=== PATIENT | male | born 1985 | race Caucasian/White ===

== ENCOUNTER 2016-08-06 21:03 | Emergency (ER) | payer OTHER ==
[2016-08-06 21:16] VITALS: BP 112/72
[2016-08-06] MEDS ORDERED: Naproxen TAB* 250 MG PO ONE (21:31)
--- NOTE | 2016-08-06 22:08 | RAD ---
INDICATION: Left wrist injury. TECHNIQUE: 3 views of the left wrist were obtained. FINDINGS: The bones are in normal alignment. No fracture is seen. Joint spaces appear maintained. IMPRESSION: NO EVIDENCE FOR FRACTURE, IF THE PATIENT'S SYMPTOMS PERSIST RECOMMEND FOLLOW-UP IMAGING.
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
== END 2016-08-06 22:29 | disposition home or self-care (01) ==
LOC: UCEAST 21:03
DX: S63.502A Unspecified sprain of left wrist, initial encounter (principal); V86.59XA Driver of other special all-terrain or other off-road motor vehicle injured in nontraffic accident, initial encounter; Y93.89 Activity, other specified; Y92.9 Unspecified place or not applicable; F41.9 Anxiety disorder, unspecified; F17.210 Nicotine dependence, cigarettes, uncomplicated
CPT/HCPCS: 99212; A9270-GY; G0463

== ENCOUNTER 2016-08-13 18:00 | Emergency (ER) | payer OTHER ==
[2016-08-13 19:10] VITALS: BP 127/82
--- NOTE | 2016-08-13 20:02 | UC ---
[facility] HPI - HPI Summary HPI Summary: 30 yo male with dental pain for awhile worse past few days no fever feels swollen - History of Current Complaint Chief Complaint: UCDentalProblem Stated Complaint: DENTAL PAIN Time Seen by Provider: 08/13/16 19:46 Hx Obtained From: Patient Onset/Duration: Gradual Onset, Lasting Weeks, Worse Since - 2 days Severity: Severe Pain Intensity: 8 Pain Scale Used: 0-10 Numeric Aggravating: Heat, Cold, Chewing Alleviating: Nothing Related History: Previous Dental Care on Same Tooth, Swelling - Allergies/Home Medications Allergies/Adverse Reactions: Allergies Allergy/AdvReac Type Severity Reaction Status Date / Time Iodine Allergy Rash Verified 08/13/16 19:10 Home Medications: Home Medications Naproxen Sodium [Naproxen Sodium 220 mg cap] 2 tab PO Q12H PRN 08/13/16 [ History Confirmed 08/13/16] PMH/Surg Hx/FS Hx/Imm Hx Previously Healthy: Yes Endocrine History Of: Denies: Diabetes, Thyroid Disease Cardiovascular History Of: Denies: Cardiac Disorders, Hypertension Respiratory History Of: Denies: COPD, Asthma GI/ History Of: Denies: Ulcer Psychological History Of: Reports: Anxiety, Post Traumatic Stress Disorder - Surgical History Surgical History: Yes Surgery Procedure, Year, and Place: RIGHT HIP SUGERY- 2 PLATES 6 PINS 16 SCREWS. RIGHT HAND SURGERY- 2 PINS. APPY - Family History Known Family History: Positive: Hypertension, Blood Disorder - mom - Social History Alcohol Use: Occasionally Substance Use Type: None Smoking Status (MU): Current Every Day Smoker Type: Cigarettes Amount Used/How Often: 1PPD Household Exposure Type: Cigarettes Review of Systems Constitutional: Negative Skin: Negative Eyes: Negative ENT: Dental Pain Respiratory: Negative Cardiovascular: Negative Gastrointestinal: Negative Genitourinary: Negative Motor: Negative Neurovascular: Negative Musculoskeletal: Negative Neurological: Negative Psychological: Negative All Other Systems Reviewed And Are Negative: Yes Physical Exam Triage Information Reviewed: Yes Appearance: Well-Appearing, No Pain Distress, Well-Nourished Vital Signs: Initial Vital Signs Temp 98.6 F 08/13/16 19:05 Pulse 68 08/13/16 19:05 Resp 14 08/13/16 19:05 BP 127/82 08/13/16 19:05 Pulse Ox 100 08/13/16 19:05 Vital Signs Reviewed: Yes Eyes: Positive: Conjunctiva Clear ENT: Positive: Hearing grossly normal. Negative: Nasal congestion, Nasal drainage, Trismus, Muffled/hoarse voice Dental: Positive: Gross Decay/Caries @ Neck: Positive: Supple, Nontender, No Lymphadenopathy Respiratory: Positive: Lungs clear, Normal breath sounds, No respiratory distress Cardiovascular: Positive: RRR, No Murmur Neurological: Positive: Alert Psychological Exam: Normal Skin Exam: Normal Dental Complaint Course/Dx - Differential Dx/Diagnosis Provider Diagnoses: acute dentalgia? abscess Discharge - Discharge Plan Condition: Stable Disposition: HOME Prescriptions: Penicillin VK TAB 500 MG(NF) [Penicillin VK 500 mg Tab(NF)] 500 mg PO QID #28 tab Patient Education Materials: Toothache (ED) Referrals: No Primary Care Phys,NOPCP [Primary Care Provider] - Additional Instructions: norco one every 4 hours for severe pain don't take and drive you need to see a dentist in a timely fashion to ER for worsening symptoms Images Dental: 1 - fx/carious
[2016-08-13] MEDS ORDERED: Penicillin VK TAB* 250 MG PO ONE (20:03)
[2016-08-13] MEDS ORDERED: HYDROcodone/ACETAMIN 5-325 MG* 1 TAB PO ONE (20:03)
== END 2016-08-13 20:25 | disposition home or self-care (01) ==
LOC: UCEAST 18:00
DX: K04.7 Periapical abscess without sinus (principal); F17.210 Nicotine dependence, cigarettes, uncomplicated
CPT/HCPCS: 99202; A9270-GY; G0463

== ENCOUNTER 2016-09-19 22:04 | Emergency (ER) | payer OTHER ==
[2016-09-19] MEDS ORDERED: Morphine INJ* 4 MG/ML 1 ML SYRINGE IM ONE (22:12)
[2016-09-19] MEDS ORDERED: Ondansetron ODT TAB* 4 MG PO ONE (22:12)
[2016-09-19] MEDS ORDERED: Morphine INJ* 4 MG/ML 1 ML SYRINGE IV ONE ×2 (22:20→23:38)
[2016-09-19] MEDS ORDERED: Ondansetron INJ* 2 MG/ML VIAL IV ONE (22:20)
[2016-09-19 22:53] LABS: Hematocrit 41 % (42-52); Hemoglobin 13.7 g/dl (14.0-18.0); Mean Corpuscular HGB Conc 33 g/dl (31-36); Mean Corpuscular Hemoglobin 28 pg (27-31); Mean Corpuscular Volume 85 fL (80-94); Mean Platelet Volume 7 um3 (7.4-10.4); Red Blood Count 4.86 10^6/ul (4.0-5.4); Red Cell Distribution Width 14 % (10.5-15); White Blood Count 8.9 10^3/ul (3.5-10.8)
[2016-09-19 23:07] LABS: BUN/Creatinine Ratio 13.6 (8-20); Calcium 9.2 mg/dL (8.6-10.3); EGFR African American 130.8 (>60); EGFR Non-African American 101.7 (>60); Potassium 3.7 mmol/L (3.5-5.0)
[2016-09-20] MEDS ORDERED: oxyCODONE/Acetamin 5/325 MG* TAB PO ONE (01:13)
[2016-09-20 01:34] VITALS: BP 107/70
--- NOTE | 2016-09-20 07:32 | RAD ---
INDICATION: Right femur injury. TECHNIQUE: 2 views of the right femur were obtained. FINDINGS: The patient is status post operative reduction and internal fixation. There is a metallic plate transfixed with multiple screws present along the posterior aspect of the acetabulum. The bones are in normal alignment. No fracture is seen. IMPRESSION: POSTSURGICAL CHANGES, NO EVIDENCE FOR ACUTE FRACTURE.
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
--- NOTE | 2016-09-20 07:50 | RAD ---
INDICATION: Trauma, right hip pain. COMPARISON: Comparison is made with a prior x-ray study of the pelvis from one day earlier. TECHNIQUE: Contiguous axial sections were obtained through the pelvis without intravenous or oral contrast. Images were reconstructed in the coronal and sagittal planes. FINDINGS: The patient is status post operative reduction internal fixation of the posterior aspect of the right acetabulum. There is mild deformity of the acetabulum in that region most consistent with an old healed fracture. There is a linear calcific density adjacent to the right lesser trochanter. No soft tissue swelling is noted in this region and this would be most consistent with a soft tissue calcification or old avulsion fracture fragment. No acute fracture is seen. 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 The sacroiliac joint spaces appear maintained. No significant enlarged pelvic lymph nodes are seen. The visualized portion of the small bowel and colon appear nondistended. No free intraperitoneal air or fluid is seen. IMPRESSION: POSTSURGICAL AND TRAUMATIC CHANGES, NO EVIDENCE FOR ACUTE FRACTURE.
--- NOTE | 2016-10-01 23:35 | ED ---
Tian Jama Rebecca, scribed for Rosendo Pulido MD on 09/19/16 at 2215 . Lower Extremity - HPI Summary HPI Summary: Pt is a 30 y/o M BIBA who presents to ED c/o R hip pain s/p fall. Pt reports he went to step off a ladder and did not see a hitch behind him. He caught his L foot on the hitch, causing him to fall and land on the lateral side of his R hip. Negative LOC. Was able to get up with the help of his fiancee. Denies any head or back trauma. Pain began immediately upon fall and has been constant since onset. Pain is currently severe, ranked 8/10 and discrete to the R hip with radiation midway down the right thigh. Sx aggravated by movement, alleviated by nothing. Denies any CHAUDHARY and neck pain. PSHx surgical intervention on the R hip with 2 plates, 6 pins and 16 screws, done at [facility]. - History of Current Complaint Chief Complaint: EDExtremityLower Stated Complaint: FALL HIP PAIN Time Seen by Provider: 09/19/16 22:08 Hx Obtained From: Patient Mechanism Of Injury: Fall From A Standing Position Onset of Pain: Prior to Arrival Onset/Duration: Still Present Severity Currently: Severe Pain Intensity: 8 Pain Scale Used: 0-10 Numeric Timing: Constant Location: Radiates To - R hip with radiation down the R thigh Associated Signs And Symptoms: Positive: Negative Aggravating Factor(s): Movement Alleviating Factor(s): Nothing - Allergies/Home Medications Allergies/Adverse Reactions: Allergies Allergy/AdvReac Type Severity Reaction Status Date / Time Iodine Allergy Rash Verified 08/13/16 19:10 Penicillins Allergy Rash Verified 09/19/16 22:08 Shellfish Allergy Allergy Rash Verified 09/19/16 22:08 PMH/Surg Hx/FS Hx/Imm Hx Endocrine/Hematology History: Denies: Hx Diabetes, Hx Thyroid Disease Cardiovascular History: Denies: Hx Hypertension Respiratory History: Denies: Hx Asthma, Hx Chronic Obstructive Pulmonary Disease (COPD) GI History: Denies: Hx Ulcer Psychiatric History: Reports: Hx Anxiety - Surgical History Surgery Procedure, Year, and Place: RIGHT HIP SUGERY- 2 PLATES 6 PINS 16 SCREWS. RIGHT HAND SURGERY- 2 PINS. APPY Infectious Disease History: Denies: Hx Clostridium Difficile, Hx Hepatitis, Hx Human Immunodeficiency Virus (HIV), Hx of Known/Suspected MRSA, Hx Shingles, Hx Tuberculosis, Hx Known/ Suspected VRE, Hx Known/Suspected VRSA, History Other Infectious Disease, Traveled Outside the [place] in Last 30 Days - Family History Known Family History: Positive: Hypertension, Blood Disorder - mom - Social History Alcohol Use: Occasionally Substance Use Type: Reports: None Smoking Status (MU): Current Every Day Smoker Type: Cigarettes Amount Used/How Often: 1PPD Review of Systems Negative: Fever, Chills Negative: Erythema Negative: Sore Throat Negative: Chest Pain Negative: Shortness Of Breath, Cough Negative: Abdominal Pain, Vomiting, Nausea Negative: dysuria, hematuria Positive: Arthralgia - R hip pain s/p fall; Denies neck pain. Negative: Edema Negative: Rash Neurological: Other - Negative dizziness Negative: Headache All Other Systems Reviewed And Are Negative: Yes Physical Exam - Summary Physical Exam Summary: Constitutional: Well-developed, Well-nourished, Alert. (-) Distressed Skin: Warm, Dry HENT: Normocephalic; Atraumatic Eyes: Conjunctiva normal Neck: Musculoskeletal ROM normal neck. (-) JVD, (-) Stridor, (-) Tracheal deviation Cardio: Rhythm regular, rate normal, Heart sounds normal; Intact distal pulses; The pedal pulses are 2+ and symmetric. Radial pulses are 2+ and symmetric. (-) Murmur Pulmonary/Chest wall: Effort normal. (-) Respiratory distress, (-) Wheezes, (-) Rales Abd: Soft, (-) Tenderness, (-) Distension, (-) Guarding, (-) Rebound Musculoskeletal: Swelling and deformity to the R lateral hip with pain to palpation. There is a surgical scar. Extremely limited ROM actively. Lymph: (-) Cervical adenopathy Neuro: Alert, Oriented x3 Psych: Mood and affect Normal Triage Information Reviewed: Yes Vital Signs On Initial Exam: Initial Vitals Temp Pulse Resp BP Pulse Ox 99.5 F 72 18 102/71 100 09/19/16 22:06 09/19/16 22:06 09/19/16 22:06 09/19/16 22:06 09/19/16 22:06 Vital Signs Reviewed: Yes Diagnostics - Vital Signs Vital Signs Temp Pulse Resp BP Pulse Ox 09/19/16 22:06 99.5 F 72 18 102/71 100 - Laboratory Result Diagrams: 09/19/16 22:30 09/19/16 22:30 Lab Statement: Any lab studies that have been ordered have been reviewed, and results considered in the medical decision making process. - Radiology Pelvis XR Xray Interpretation: Positive (See Comments) - Evulsion fracture of the lesser trochanter on the R side. Hardware has been replaced. Due to hardware being replaced and the propensity for additoinal fractures, will order CT. Radiology Interpretation Completed By: ED Physician Femur XR Xray Interpretation: No Acute Changes Radiology Interpretation Completed By: ED Physician Lower Extremity Course/Dx - Course Assessment/Plan: Pt is a 30 y/o M BIBA who presents to ED c/o severe R hip pain s/p fall. Pt reports he went to step off a ladder and did not see a hitch behind him. He caught his L foot on the hitch, causing him to fall and land on the lateral side of his R hip. Negative LOC. Was able to get up with the help of his fiancee. Denies any head or back trauma. Pain began immediately upon fall and has been constant since onset. Pain is discrete to the R hip with radiation midway down the right thigh. Sx aggravated by movement, alleviated by nothing. Denies any CHAUDHARY and neck pain. Pelvic XR shows an evulsion fracture of the lesser trochanter. Femur XR is negative. Pt will be signed out, pending dispo, awaiting CT Pelvis. - Diagnoses Provider Diagnoses: Fracture of lesser trochanter of femur, Fall Discharge - Discharge Plan Condition: Stable Disposition: OTHER Discharge Disposition Comment: Pt will be signed out to Dr. Jay, pending dispo, awaiting Pelvic CT Referrals: No Primary Care Phys,NOPCP [Primary Care Provider] - The documentation as recorded by the Tian olsen Rebecca accurately reflects the service I personally performed and the decisions made by me, Rosendo Pulido MD.
--- NOTE | 2016-10-04 06:28 | ED ---
carolyn Jama Timothy, scribed for Roman Jay MD on 09/19/16 at 2351 . Progress - Progress Note Progress Note: Daryn Garcia is a 30 yo male presenting to [facility] with 8/10 right hip pain S/ P a 3 foot fall off a ladder at 2100 tonight. His MHx includes right hip surgery with 2 plates, 6 pins, and 16 screws, right hand surgery, appendectomy, and anxiety. He was signed out by Dr. Pulido pending CT Pelvis. CT Pelvis: No acute fracture. Small soft tissue calcification near right lesser trochanter. Incidental bone island right femoral head. Fixation right pelvis. - EKG/XRAY/CT CT: see note for CT Pelvis result Course/Dx - Course Course Of Treatment: Daryn Garcia is a 30 yo male presenting to [facility] with 8 /10 right hip pain S/P a 3 foot fall off a ladder at 2100 tonight, with a Hx of right hip replacement with 2 plates, 6 pins, and 16 screws. He was signed out by Dr. Pulido pending CT Pelvis. Pt medication list reviewed this visit. His CT Pelvis suggests no acute fracture. Small soft tissue calcification near right lesser trochanter. Incidental bone island right femoral head. Fixation right pelvis. After clinical examination and review of his lab and imaging studies, he will be dicharged home with right hip contusion with appropriate instructions. - Diagnoses Provider Diagnoses: Contusion of right hip The documentation as recorded by the franklynibecarolyn Timothy accurately reflects the service I personally performed and the decisions made by , Roman Jay MD.
== END 2016-09-20 01:35 ==
LOC: ED 22:04
DX: S70.01XA Contusion of right hip, initial encounter (principal); W19.XXXA Unspecified fall, initial encounter; Y93.9 Activity, unspecified; Y92.9 Unspecified place or not applicable; Z88.0 Allergy status to penicillin; F41.9 Anxiety disorder, unspecified; F17.210 Nicotine dependence, cigarettes, uncomplicated
CPT/HCPCS: 36415; 72170; 72192; 80048; 85027; 96374; 96375; 99282; A9270-GY; J2270; J2405

== ENCOUNTER 2017-02-05 11:13 | Emergency (ER) | payer OTHER ==
--- NOTE | 2017-02-05 11:45 | RAD ---
INDICATION: Right fifth finger injury. TECHNIQUE: 3 views of the right fifth finger were obtained. FINDINGS: There is soft tissue swelling present around the distal phalanx. There is a slightly comminuted nondisplaced fracture of the tuft of the distal phalanx. Joint spaces appear maintained. IMPRESSION: SLIGHTLY COMMINUTED NONDISPLACED FRACTURE OF THE TUFT OF THE DISTAL PHALANX.
--- NOTE | 2017-02-05 12:04 | ED ---
Upper Extremity Pain - HPI Summary HPI Summary: 31 male presents to ED with complaints of injury and pain to right pinky finger that occurred just [employer]. Patient states he was working with wood/logs and coworker accidentally dropped log onto patient's distal pinky. Admits to swelling and bruising, nail still intact. No other complaints or injuries. Has not taken any medications and pain is minimal currently. No PMHx. Dominant hand right. Denies weakness, numbness/tingling. - History of Current Complaint Chief Complaint: EDExtremityUpper Stated Complaint: FINGER INJURY Time Seen by Provider: 02/05/17 11:19 Hx Obtained From: Patient Mechanism Of Injury: Other - caught in between to heavy logs Onset/Duration: Started Hours Ago, Traumatic, Still Present Timing: Constant Severity Initially: Moderate Severity Currently: Mild Pain Location: Finger - right fifth digit Character: Aching, Throbbing Aggravating Factor(s): Movement Alleviating Factor(s): Rest Associated Signs & Symptoms: Positive: Swelling, Bruising. Negative: Weakness, Numbness/Tingling Related History: Dominant Hand Right - Allergies/Home Medications Allergies/Adverse Reactions: Allergies Allergy/AdvReac Type Severity Reaction Status Date / Time Iodine Allergy Rash Verified 08/13/16 19:10 Penicillins Allergy Rash Verified 09/19/16 22:08 Shellfish Allergy Allergy Rash Verified 09/19/16 22:08 PMH/Surg Hx/FS Hx/Imm Hx Endocrine/Hematology History: Denies: Hx Diabetes, Hx Thyroid Disease Cardiovascular History: Denies: Hx Hypertension Respiratory History: Denies: Hx Asthma, Hx Chronic Obstructive Pulmonary Disease (COPD) GI History: Denies: Hx Ulcer Psychiatric History: Reports: Hx Anxiety - Surgical History Surgery Procedure, Year, and Place: RIGHT HIP SUGERY- 2 PLATES 6 PINS 16 SCREWS. RIGHT HAND SURGERY- 2 PINS. APPY - Immunization History Immunizations Up to Date: Yes Infectious Disease History: No Infectious Disease History: Denies: Hx Clostridium Difficile, Hx Hepatitis, Hx Human Immunodeficiency Virus (HIV), Hx of Known/Suspected MRSA, Hx Shingles, Hx Tuberculosis, Hx Known/ Suspected VRE, Hx Known/Suspected VRSA, History Other Infectious Disease, Traveled Outside the [place] in Last 30 Days - Family History Known Family History: Positive: Hypertension, Blood Disorder - mom - Social History Alcohol Use: Rare Substance Use Type: Reports: None Smoking Status (MU): Heavy Every Day Tobacco Smoker Type: Cigarettes Amount Used/How Often: 1PPD Review of Systems Constitutional: Negative Cardiovascular: Negative Respiratory: Negative Positive: Arthralgia, Myalgia, Edema Positive: Bruising - right fifth digit Neurological: Negative All Other Systems Reviewed And Are Negative: Yes Physical Exam Triage Information Reviewed: Yes Vital Signs On Initial Exam: Initial Vitals Temp Pulse Resp BP Pulse Ox 98.1 F 83 18 130/80 100 02/05/17 11:14 02/05/17 11:14 02/05/17 11:14 02/05/17 11:14 02/05/17 11:14 Vital Signs Reviewed: Yes Appearance: Positive: Well-Appearing, No Pain Distress, Well-Nourished Skin: Positive: Warm, Skin Color Reflects Adequate Perfusion, Dry, Other - ecchymosis of right fifth distal digit DIP. Negative: Cold, Cyanosis @, Pale, Erythema @ Head/Face: Positive: Normal Head/Face Inspection Eyes: Positive: Conjunctiva Clear ENT: Positive: Hearing grossly normal Neck: Positive: Supple, Nontender Respiratory/Lung Sounds: Positive: Clear to Auscultation, Breath Sounds Present. Negative: Rales, Rhonchi, Wheezes Cardiovascular: Positive: Normal, RRR, Pulses are Symmetrical in both Upper and Lower Extremities - 2+ radial b/l. Negative: Murmur, Rub Musculoskeletal: Positive: Normal, Strength/ROM Intact, Pain @ - distal fifth digit, DIP, Edema Right - DIP right fifth digit, Other - nail intact and without obvious injury at this time, probably contused. no crepitus, step off or obvious deformity other than ecchymosis noted on right fifth DIP. Negative: Limited @, Interruption @ Neurological: Positive: Normal, Sensory/Motor Intact, Alert, Oriented to Person Place, Time, CN Intact II-III, Reflexes Intact, NV Bundle Intact Distally, Normal Gait - Michael Coma Scale Coma Scale Total: 15 Diagnostics - Vital Signs Vital Signs Temp Pulse Resp BP Pulse Ox 02/05/17 11:14 98.1 F 83 18 130/80 100 - Laboratory Lab Statement: Any lab studies that have been ordered have been reviewed, and results considered in the medical decision making process. - Radiology right fifth Xray Interpretation: Positive (See Comments) - SLIGHTLY COMMINUTED NONDISPLACED FRACTURE OF THE TUFT OF THE DISTAL PHALANX. Radiology Interpretation Completed By: Radiologist Course/Dx - Course Course Of Treatment: xray obtained and showed communited fracture of tuft of distal phalanx, non displaced. splint applied. RICE and ibuprofen. Patient did not want pain management while in ED. no concern for other etiology at this time. Follow up PCP. Aware of worsening signs and symptos to watch out for. - Diagnoses Differential Diagnosis/HQI/PQRI: Positive: Contusion, Fracture (Closed), Strain , Sprain Provider Diagnoses: Fracture of phalanx of right little finger Discharge - Discharge Plan Condition: Stable Disposition: HOME Patient Education Materials: Finger Fracture (ED) Referrals: Deonte Kendall MD [Primary Care Provider] - Tim Castillo MD [Medical Doctor] - Additional Instructions: Take ibuprofen as needed for pain and inflammation. Ice, rest, elevate and apply compression. Wear splint until fracture is seen and seen by PCP/ortho for repeat imaging. Follow up with PCP/ortho. Any new or worsening symptoms please seek medical attention.
[2017-02-05 14:01] VITALS: BP 116/72
== END 2017-02-05 14:00 | disposition home or self-care (01) ==
LOC: ED 11:13
DX: S62.606A Fracture of unspecified phalanx of right little finger, initial encounter for closed fracture (principal); R60.9 Edema, unspecified; F17.210 Nicotine dependence, cigarettes, uncomplicated; W22.8XXA Striking against or struck by other objects, initial encounter; Y93.9 Activity, unspecified; Y92.9 Unspecified place or not applicable
CPT/HCPCS: 73140; 99281